=== PATIENT | male | born 1940 | race Caucasian/White ===

== ENCOUNTER 2020-04-22 08:17 | Outpatient (CLI) | payer MEDICARE | END 2020-04-22 08:18 | disposition home or self-care (01) | LOC: PET 08:17 | PROVIDERS: ATTEND Radiology Radiation Oncology | DX: C44.222 Squamous cell carcinoma of skin of right ear and external auricular canal (principal); R59.0 Localized enlarged lymph nodes | CPT/HCPCS: 78815; A9552 ==